=== PATIENT | female | born 1975 | race Caucasian/White ===

== ENCOUNTER 2017-10-17 16:16 | Emergency (ER) | payer MEDICAID ==
[2017-10-17] MEDS ORDERED: NS 1,000 ML IV ONE (16:20)
[2017-10-17] MEDS ORDERED: LORazepam 2 MG/ML INJ IVP ONE (16:20)
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
[2017-10-17 17:05] LABS: PLATELET COUNT 286 10^3/uL (150-400)
[2017-10-17 17:40] VITALS: BP 101/88
== END 2017-10-17 17:38 | disposition home or self-care (01) ==
DX: G40.909 Epilepsy, unspecified, not intractable, without status epilepticus (principal); E86.9 Volume depletion, unspecified
CPT/HCPCS: G0480